=== PATIENT | female | born 1975 | race Caucasian/White ===

== ENCOUNTER → 2022-07-28 10:48 | Outpatient (BNVA) | payer BC, SELFPAY | PROVIDERS: Visit Provider Emergency Medicine | DX: S99.911A Unspecified injury of right ankle, initial encounter (principal); S89.91XA Unspecified injury of right lower leg, initial encounter; X58.XXXA Exposure to other specified factors, initial encounter | CPT/HCPCS: 73590; 73610 ==

== ENCOUNTER → 2023-03-02 14:13 | Outpatient (BNVA) | payer BC, SELFPAY | PROVIDERS: Visit Provider Nurse Practitioner Family | DX: J03.90 Acute tonsillitis, unspecified (principal); J02.9 Acute pharyngitis, unspecified | CPT/HCPCS: 87071; 87880 ==

== ENCOUNTER → 2023-06-02 09:15 | Outpatient (BNVA) | payer BC, SELFPAY | PROVIDERS: Visit Provider Family Medicine | DX: E03.9 Hypothyroidism, unspecified (principal); F33.9 Major depressive disorder, recurrent, unspecified; G47.00 Insomnia, unspecified; E28.2 Polycystic ovarian syndrome; M62.830 Muscle spasm of back; M25.50 Pain in unspecified joint; G89.29 Other chronic pain; Z13.1 Encounter for screening for diabetes mellitus; Z13.220 Encounter for screening for lipoid disorders; Z13.6 Encounter for screening for cardiovascular disorders | CPT/HCPCS: 80053; 80061; 83036; 84439; 84443; 84481; 85025; 85651; 86038; 86140 ==

== ENCOUNTER → 2023-08-04 13:32 | Outpatient (BNVA) | payer BC, SELFPAY | PROVIDERS: Visit Provider Anesthesiology Pain Medicine | DX: M54.16 Radiculopathy, lumbar region (principal); M54.50 Low back pain, unspecified; G89.29 Other chronic pain | CPT/HCPCS: 72110 ==

== ENCOUNTER 2023-08-18 12:00 | Outpatient (CLI) | payer BC, SELFPAY | END 2023-08-18 12:01 | disposition home or self-care (01) | LOC: SLEEP 08-19 12:52 | PROVIDERS: Visit Provider Psychiatry & Neurology Neurology | DX: G47.00 Insomnia, unspecified (principal); R06.83 Snoring | CPT/HCPCS: 72050; G0399 ==

== ENCOUNTER 2023-09-01 14:27 | Outpatient (CLI) | payer BC, SELFPAY ==
--- NOTE | 2023-09-01 14:30 | MR_ITS ---
WS: [email or web address] MRI LUMBAR SPINE NONCONTRAST TECHNIQUE: Sagittal T1, T2 and STIR imaging. Axial T1 and T2 imaging. CLINICAL INFORMATION: M54.16 - Radiculopathy, lumbar region COMPARISON: None. FINDINGS: Counting performed from the craniocervical junction. 11 thoracic type rib bearing vertebral bodies. 5 lumbar type vertebral bodies considered L1-L5 for the purposes of this dictation. L1-L2: Mild facet arthropathy. Spinal canal and foramen are patent. L2-L3: Mild facet arthropathy. Spinal canal and foramen are patent. L3-L4: Slight retrolisthesis. Mild annular bulging. Mild facet arthropathy. Spinal canal and foramen are patent. L4-L5: Mild annular bulging. Moderate facet arthropathy. Spinal canal and foramen are patent. Tiny fa cet effusions. L5-S1: Mild annular bulging with slight impingement on the traversing S1 nerve roots bilaterally RIGH T greater than LEFT. Moderate facet arthropathy with small LEFT greater than RIGHT facet effusions. M ild bilateral foraminal narrowing. S1 is partially lumbarized. Visualized pelvic bony structures: Normal. Paravertebral soft tissues: Normal. Retroverted and retroflexed uterus. IMPRESSION: 1. Counting performed from the craniocervical junction. 11 thoracic type rib bearing vertebral bodi es. 5 lumbar type vertebral bodies considered L1-L5 for the purposes of this dictation. 2. Mild lumbar curve. No acute compression. Incidental segmentation anomaly T11-T12. 3. Mild annular bulge L4-5 with slight narrowing of the subarticular recess bilaterally LEFT greater than RIGHT. 4. Shallow central protrusion L5-S1 with slight contact of the traversing S1 nerve roots. Mild bilat eral foraminal narrowing. 5. Moderate facet arthropathy L4-L5 and L5-S1 with small facet effusions can be seen with mild infla mmatory synovitis
== END 2023-09-01 14:28 | disposition home or self-care (01) ==
LOC: RAD 14:28
PROVIDERS: PCP Family Medicine; Visit Provider Anesthesiology Pain Medicine
DX: M54.16 Radiculopathy, lumbar region (principal); M47.817 Spondylosis without myelopathy or radiculopathy, lumbosacral region
CPT/HCPCS: 72148

== ENCOUNTER → 2023-12-22 09:23 | Outpatient (BNVA) | payer BC, SELFPAY | PROVIDERS: PCP Family Medicine; Visit Provider Family Medicine | DX: E28.2 Polycystic ovarian syndrome; E03.9 Hypothyroidism, unspecified | CPT/HCPCS: 80053; 84439; 84443; 84481 ==

== ENCOUNTER 2024-02-19 09:59 | Oncology outpatient (recurring) (ONCR) | payer BC, SELFPAY ==
[2024-02-19 11:16] LABS: Basophils % 0.8 %; Eosinophils # 0.2 10^3/uL (0.0-0.8); Eosinophils % 4.1 %; Hematocrit 42.8 % (36-47); Lymphocytes # 1.2 10^3/uL (0.8-4.8); Lymphocytes % 30.3 %; Mean Corpuscular HGB Conc 32.9 g/dL (30-55); Mean Corpuscular Volume 85.1 fl (85-98); Mean Platelet Volume 9.5 fL (7.4-10.4); Monocytes # 0.3 10^3/uL (0.2-0.9); Monocytes % 8.5 %; Neutrophils # 2.16 10^3/uL (1.8-7.7); Nucleated Red Blood Cells % 0 %; Platelet Count 470 10^3/cmm (157-399); Red Blood Count 5.03 10^6/uL (3.85-5.65); Red Cell Distribution Width 14.3 % (12.1-15.1); White Blood Count 3.86 10^3/uL (3.29-11.43)
[2024-02-19 11:28] LABS: INR 0.94 (0.8-1.2)
[2024-02-19 11:47] LABS: Alanine Aminotransferase 12 U/L (0-33); Albumin Level 3.9 g/dL (3.5-5.2); Alkaline Phosphatase 66 U/L (35-105); Anion Gap 13.1 (5-19); Aspartate Amino Transferase 15 U/L (0-32); Blood Urea Nitrogen 8 mg/dL (6-20); Calcium 8.8 mg/dL (8.5-10.5); Carbon Dioxide 24 mmol/L (22-29); Chloride 108 mmol/L (98-107); Creatinine Clr Calc Pharmacy 121.0532; Globulin 2.9 g/dL (1.3-4.6); Glomerular Filtration Rate 89.7 mL/min (90-130); Glucose 89 mg/dL (65-115); Osmolality Calculated 290 mOsm/kg (285-295); Potassium 4.1 mmol/L (3.5-5.1); Sodium 141 mmol/L (136-145); Thyroid Stimulating Hormone 0.78 uIU/mL (0.27-4.20); Total Bilirubin 0.3 mg/dL (0.15-1.2); Total Protein 6.8 g/dL (6.6-8.7)
[2024-02-22 11:40] LABS: PTT-LA-Screen 31 sec (< OR = 40)
[2024-02-24 04:24] LABS: PROTEIN C, ACTIVITY 97 % normal (70-180)
[2024-02-24 04:44] LABS: Antithrombin III Activity 123 % normal (80-135)
[2024-02-25 13:59] LABS: PROTHROMBIN (FACTOR II) 20210G POSITIVE
[2024-02-29 20:35] LABS: Factor 5 Leiden Mutation NEGATIVE
== END 2024-02-23 23:59 | disposition home or self-care (01) ==
PROVIDERS: PCP Family Medicine; Visit Provider Internal Medicine Hematology & Oncology
DX: D68.59 Other primary thrombophilia (principal); I67.5 Moyamoya disease; E03.9 Hypothyroidism, unspecified
CPT/HCPCS: 36415; 80053; 81241; 84439; 84443; 85025; 85210; 85300; 85303; 85306; 85610; 85613; 85730

== ENCOUNTER 2024-03-22 10:15 | Oncology outpatient (recurring) (ONCR) | payer BC, SELFPAY ==
[2024-03-05 04:20] LABS: CARDIOLIPIN AB (IGA) <2.0 APL-U/mL; CARDIOLIPIN AB (IGG) <2.0 GPL-U/mL; CARDIOLIPIN AB (IGM) <2.0 MPL-U/mL
[2024-03-08 02:49] LABS: Beta 2 Glycoprotein IGA <2.0 U/mL (<20.0); Beta 2 Glycoprotein IGG <2.0 U/mL (<20.0); Beta 2 Glycoprotein IGM <2.0 U/mL (<20.0)
--- NOTE | 2024-03-09 09:39 | MM_ITS ---
WS: [email or web address] BILATERAL SCREENING DIGITAL TOMOSYNTHESIS MAMMOGRAM WITH CAD HISTORY: screening breast examination COMPARISON: None available. Bilateral CC and MLO views with tomosynthesis and synthetic mammography submitted. Computer aided det ection analyzed. Breast composition: There are scattered areas of fibroglandular density. No suspicious masses, microc alcifications or architectural distortion. With the nipple in profile there are no persistent masses in the LEFT subareolar region. No calcifications. MM/[place] [id number] IMPRESSION: BI-RADS: 2-Benign FOLLOW UP: 1 Year Follow-up
--- NOTE | 2024-03-22 10:15 | CT_ITS ---
WS: [email or web address] CTA HEAD AND NECK TECHNIQUE: Contrast enhanced CTA of the head and neck with coronal and sagittal reformatted images an d maximum intensity projection (MIP) images. NASCET criteria utilized. CLINICAL INFORMATION: moyamoya COMPARISON: None. DLP: 1170.[address] scans at [facility] use at least one of these dose optimization techniques: automated e xposure control; mA and/or kV adjustment per patient size (includes targeted exams where dose is matc hed to clinical indication); or iterative reconstruction. FINDINGS: No evidence intracranial hemorrhage or mass effect. Ventricular system and basal cisterns a re patent. Paranasal sinuses and mastoid air cells are well aerated. RIGHT: RIGHT common carotid artery is paten. Hypoplastic ICA essentially terminates just distal to th e bifurcation with collateral vessels reconstituting the small petrous ICA. Collateral vessels supply the cavernous carotid ICA with a more normal-appearing carotid siphon. Hypoplastic RIGHT A1 segment. Normal vascularity to the RIGHT MCA territory. LEFT: LEFT common carotid artery is patent. ICA terminates just distal to the bifurcation and reconst itutes at the skull base via collateral vessels with a tiny petrous and cavernous segment. Supraclino id ICA supplied via a persistent carotid basilar anastomosis with relatively normal vascularity to th e FABIAN and MCA territories. Dominant ectatic RIGHT vertebral artery. Tiny LEFT vertebral artery mainly ends in PICA. Dilated tort uous persistent carotid basilar anastomosis from the LEFT distal cavernous carotid artery/supraclinoi d ICA to the basilar artery. Normal vascularity to the PRODUCT GRADER territory bilaterally. Straightening of the normal cervical doses. Prior postoperative changes ACDF C4-C6. CT/CT angio headneck* [id number] IMPRESSION: 1. Both common carotid arteries are patent. Hypoplastic internal carotid arter ies which reconstitute at the skull base via collateral vessels RIGHT greater t pradhan LEFT. Only tiny LEFT petrous and cavernous segments. 2. Relatively normal size RIGHT supraclinoid ICA. 3. LEFT supraclinoid ICA supplied via persistent anastomosis from the basilar artery with relatively normal vascularity to the FABIAN and MCA territories bilate rally. 4. Hypoplastic RIGHT A1 segment. 5. Dominant ectatic RIGHT vertebral artery is patent to the basilar. Diminutiv e LEFT vertebral artery which primarily ends in PICA. 6. Prior postoperative changes ACDF C4-C6. 7. 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
[2024-03-22] MEDS: iohexol 350 mg/mL 500 mL Btl (per mL) IV (10:41)
== END 2024-03-25 23:59 | disposition home or self-care (01) ==
LOC: ONCMED 03-23 18:46
PROVIDERS: PCP Family Medicine; Visit Provider Internal Medicine Hematology & Oncology
DX: Z53.9 Procedure and treatment not carried out, unspecified reason (principal); I67.5 Moyamoya disease; E03.9 Hypothyroidism, unspecified
CPT/HCPCS: 36415; 70496; 70498; 77063; 77067; 86146; 86147; Q9967

== ENCOUNTER 2024-03-31 12:48 | Outpatient (CLI) | payer BC, SELFPAY ==
--- NOTE | 2024-03-31 13:00 | MR_ITS ---
WS: [email or web address] MRI HEAD WITH CONTRAST TECHNIQUE: Sagittal T1, T2 axial, T2 axial FLAIR, axial susceptibility weighted imaging, axial diffus ion weighted images, and coronal T2 images were obtained. Pre and post-T1 axial and post T1 coronal i mages. ADC and FSPGR images. CLINICAL INFORMATION: I67.5 - Moyamoya disease COMPARISON: Prior CTA 03/22/2024 FINDINGS: Some images slightly degraded by motion. No evidence of restricted diffusion to suggest acute ischemia. Ventricular system and basal cisterns are patent. Minimal white matter changes. No significant parenchymal volume loss. Normal posterior fo ssa. Ectatic distal RIGHT vertebral artery and dolichoectatic basilar artery flow void. Mastoid air c ells are well aerated. Normal posterior nasopharynx. Paranasal sinuses are well aerated. No abnormal intracranial enhancement. Normal dural venous sinuses. 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 Dilated tortuous persistent carotid basilar anastomosis. Thi s originates from the LEFT distal cavernous carotid artery/supraclinoid ICA to the basilar artery as seen on the recent CTA. MR/MR head wo/w con [id number] IMPRESSION: 1. No evidence of restricted diffusion to suggest acute ischemia. 2. A few tiny foci of T2 hyperintensity in the supratentorial white matter of doubtful clinical significance. No acute or chronic infarcts. 3. No significant parenchymal volume loss. 4. No abnormal gadolinium enhancement. 5. LEFT carotid basilar anastomosis as previously described. This slightly con tacts the LEFT aspect of the optic chiasm. Recommend correlation with visual sy mptoms. 6. No other acute findings.
--- NOTE | 2024-03-31 13:45 | MR_ITS ---
WS: [email or web address] MRA CAROTID WITHOUT AND WITH GADOLINIUM ENHANCEMENT TECHNIQUE: Axial 2-D TOF and gadolinium bolus images obtained with axial images and axial, sagittal, and coronal 2-D reformatted images. CLINICAL INFORMATION: I67.5 - Moyamoya disease COMPARISON: CTA 03/22/2024 FINDINGS: RIGHT:RIGHT common carotid artery is patent. Hypoplastic ICA terminates just distal to the bifurcatio n with collateralization and reconstitution of the intracranial petrous ICA. Collateral supply to the cavernous carotid ICA. LEFT: LEFT common carotid artery is patent. ICA terminates just distal to the bifurcation and reconst itutes at the skull base via collateral vessels. Tiny intracranial petrous and cavernous segments. Ferraro praclinoid ICA supplied via a robust persistent carotid basilar anastomosis. Dominant ectatic RIGHT vertebral artery. Tiny LEFT vertebral artery ends in PICA. Proximal subclavian arteries are patent. External carotid arteries are patent. MR/MR angio neck w con* [id number] IMPRESSION: 1. Hypoplastic internal carotid arteries which terminate distal to the bifurca tions. Reconstitution at the skull base via collateral vessels more robust on t he RIGHT. This is unchanged with the recent CTA. 2. Dominant ectatic RIGHT vertebral artery. Tiny LEFT vertebral artery ends in PICA.
--- NOTE | 2024-03-31 14:30 | MR_ITS ---
WS: [email or web address] MRA HEAD TECHNIQUE: Axial 3-D TOF images obtained with axial images and axial, sagittal, and coronal 2-D refor matted images. CLINICAL INFORMATION: M54.81 - Occipital neuralgia COMPARISON: None. FINDINGS: Dominant ectatic RIGHT vertebral artery with dolichoectatic basilar artery. Tiny LEFT vertebral arter y ends in PICA. The RIGHT ICA reconstitutes at the skull base via collateral vessels. RIGHT petrous a nd cavernous segments are patent RIGHT greater than LEFT. Only a small amount of flow in the LEFT pet bear and cavernous segments similar to the recent CTA. Persistent robust carotid basilar anastomosis from the supraclinoid LEFT ICA to the basilar artery. T his supplies the LEFT MCA territory with normal vascularity. Hypoplastic RIGHT A1 segment. Normal vas cularity to the FABIAN territory with patent anterior communicating artery. Normal vascularity of the RI GHT MCA territory. Basilar artery is patent. Normal vascularity to the OUTSIDE SALES ACCOUNT REPRESENTATIVE territory bilaterally. MR/MR angio head wo con [id number] IMPRESSION: 1. Ectatic dominant RIGHT vertebral artery with dolichoectatic basilar artery. LEFT vertebral artery ends in PICA. 2. Internal carotid arteries reconstitute at the skull base via collateral alexandro w RIGHT greater than LEFT. 3. LEFT supraclinoid ICA with persistent anastomosis from the basilar artery w ith normal vascularity to the FABIAN and MCA territories bilaterally. 4. Hypoplastic RIGHT A1 segment.
== END 2024-03-31 12:49 | disposition home or self-care (01) ==
LOC: RAD 12:48
PROVIDERS: PCP Family Medicine; Visit Provider Psychiatry & Neurology Neurology
DX: I67.5 Moyamoya disease (principal); M54.81 Occipital neuralgia; G43.809 Other migraine, not intractable, without status migrainosus; M54.2 Cervicalgia; M54.9 Dorsalgia, unspecified; G89.29 Other chronic pain
CPT/HCPCS: 70544; 70548; 70553; 73030; A9577

== ENCOUNTER 2024-07-05 13:38 | Oncology outpatient (recurring) (ONCR) | payer BC, SELFPAY ==
--- NOTE | 2024-07-05 13:45 | MR_ITS ---
WS: [id number] MRI RIGHT SHOULDER HISTORY: right shoulder pain/injury COMPARISON: 03/31/2024 TECHNIQUE: Multiplanar sequences of the shoulder joint are submitted. Mild AC joint arthritis. Downsloping of the acromion with mild subacromial impingement. Small amount of fluid in the subacromial recess. No os acromion. Biceps tendon in normal position. No rotator cuff muscle atrophy or edema. No tears are identified. Mild degenerative changes and aroun d the cortex at the humeral head and glenoid. Increased fluid in the axillary pouch. Small loose bodies are present within the fluid surrounding th e humeral head. Ovoid cystic mass projects into the suprascapular notch. There is fluid extending jonathan ng the subscapularis tendon but not within the tendon. This may be a paralabral cyst. No labral tear is identified. MR/MR shoulder RT wo con* [id number] IMPRESSION: 1. Joint effusions and fluid collection surrounding the humeral head. 2. Small cyst extending into the subscapularis notch is probably a paralabral cyst. Lobulated cyst extends along the subscapularis tendon but no tear identif ied. Suspect occult paralabral cyst. 3. Downsloping of the acromion with mild subacromial impingement. 4. No rotator cuff tear. 5. Small loose bodies in the joint effusion surround the humeral head. 6. Glenohumeral joint arthritis. 7. No muscle atrophy or denervation.
== END 2024-07-25 23:59 | disposition home or self-care (01) ==
LOC: RAD 13:38 → ONCMED 07-11 06:51
PROVIDERS: PCP Family Medicine; Visit Provider Physician Assistant
DX: M19.019 Primary osteoarthritis, unspecified shoulder; M75.41 Impingement syndrome of right shoulder; M24.011 Loose body in right shoulder; S43.431A Superior glenoid labrum lesion of right shoulder, initial encounter; X58.XXXA Exposure to other specified factors, initial encounter; M25.411 Effusion, right shoulder
CPT/HCPCS: 73221

== ENCOUNTER → 2024-09-02 07:50 | Outpatient (BNVA) | payer BC, SELFPAY | PROVIDERS: PCP Family Medicine; Visit Provider Student in an Organized Health Care Education/Training Program | DX: M75.41 Impingement syndrome of right shoulder; S43.431A Superior glenoid labrum lesion of right shoulder, initial encounter; M19.011 Primary osteoarthritis, right shoulder; X58.XXXA Exposure to other specified factors, initial encounter | CPT/HCPCS: 77002 ==

== ENCOUNTER → 2024-11-03 14:39 | Outpatient (BNVA) | payer BC, SELFPAY | PROVIDERS: PCP Family Medicine; Visit Provider Family Medicine | DX: Z12.4 Encounter for screening for malignant neoplasm of cervix (principal) | CPT/HCPCS: 87624 ==

== ENCOUNTER 2024-12-10 16:28 | Emergency (ER) | payer BC, SELFPAY ==
--- NOTE | 2024-12-10 16:29 | XRR_ITS ---
PROCEDURE INFORMATION: Exam: XR Right Shoulder Exam date and time: 12/10/2024 4:46 PM Age: 49 years old Clinical indication: Pain; Shoulder; Right; Additional info: Injury TECHNIQUE: Imaging protocol: Radiologic exam of the right shoulder. Views: 2 or more views. COMPARISON: MR shoulder RT wo con* [id number] 07/05/2024 1:56 PM FINDINGS: Bones/joints: Normal. Soft tissues: Normal. XR/XR shoulder RT min 2V* [id number] IMPRESSION: No acute findings.
[2024-12-10 16:32] VITALS: BP 132/86; PULSE 91; RESP 16; TEMP 36.7; O2SAT 99; BMI 31.0
[2024-12-10] MEDS: ketorolac 60 mg/2 mL INJ IM (17:46)
--- NOTE | 2024-12-10 17:53 | W.ED.EXTPRO ---
HPI - Extremity Problem General: Chief complaint: Extremity Injury, Upper Stated complaint: right shoulder injury Time Seen by Provider: 12/10/24 17:14 History of Present Illness: Layne is a 49-year-old female that is right-hand dominant that presents to the emergency department with right shoulder pain. Patient reports she has had issues with degenerative joint disease in the right shoulder and is being evaluated currently by Dr. Loyola. Last seen by Dr. Loyola this week on Thursday. At that time she was complaining of right shoulder pain but had normal range of motion. Since that time she has had increasing pain, decreasing range of motion and is requiring hydrocodone for pain management. Patient is also been using ice. Patient has a history that includes airless Danlos syndrome, factor V Leiden, and hypothyroidism. Associated symptoms: Deny chest pain or fever(s) Related Data Home Medications ?Medication ?Instructions ?Recorded ?Confirmed melatonin PO 07/26/22 12/07/24 butalbital 50 mg-acetaminophen 325 1 cap PO Q4H PRN 06/02/23 12/07/24 mg-caffeine 40 mg-codeine 30 mg cap diazepam 5 mg tablet 5 mg PO BID PRN 06/02/23 12/07/24 multivitamin (Daily Multi-Vitamin 1 tab PO DAILY 06/02/23 12/07/24 tablet) alprazolam 0.5 mg tablet 0.5 mg PO DAILY PRN 02/19/24 12/07/24 afyrcfsihqlmu-mmmovtorhdmqn-lztkvtqqanqqe 60 cap PO BID PRN Moyamoya Disease 02/19/24 12/07/24 65 mg-100 mg-325 mg capsule Previous Rx's ?Medication ?Instructions ?Recorded triamcinolone acetonide 0.1 % 1 applic topical BID #454 grams 09/22/23 topical ointment albuterol sulfate 90 mcg/actuation 2 puff inhalation Q6H PRN 06/22/24 aerosol inhaler shortness of breath or wheezing #8.5 grams citalopram 40 mg tablet 40 mg PO DAILY 90 days #90 tabs 06/22/24 hydrocodone 5 mg-acetaminophen 325 1 tab PO BID PRN severe pain 06/22/24 mg tablet (scale score 7-10) 7 days #14 tabs levothyroxine 112 mcg tablet 112 mcg PO DAILY 90 days #90 tabs 06/22/24 metformin 500 mg tablet 500 mg PO DAILY 90 days #90 tabs 06/22/24 mupirocin 2 % topical ointment 1 applic topical BID 10 days #22 06/22/24 grams quetiapine 25 mg tablet (Seroquel) 25 mg PO .at bedtime 90 days #90 06/22/24 tabs cyclobenzaprine 10 mg tablet 10 mg PO TID PRN muscle spasm #90 08/11/24 tabs tramadol 50 mg tablet 50 mg PO BID PRN pain 7 days #14 08/11/24 tabs ketoconazole 2 % shampoo 1 applic topical Q14D #120 mL 11/03/24 ketorolac 10 mg tablet 10 mg PO Q8H 5 days #15 tabs 12/10/24 Allergies Allergy/AdvReac Type Severity Reaction Status Date / Time Latex, Natural Rubber Allergy Intermediate ALGY-Rash Verified 12/07/24 08:36 Review of Systems General: Reports: 10 or more systems reviewed and unremarkable except in HPI and below Const: Denies: fever(s), chills or body aches Card: Denies: chest pain or orthopnea Resp: Denies: dyspnea, productive cough or wheezing GI: Denies: abdominal pain, nausea or vomiting Musc: Reports: joint pain, joint swelling, joint stiffness and limited range of motion Skin/Breast: Denies: changes in skin color or dry skin Neuro: Denies: numbness in extremities or weakness in extremities Psych: Denies: anxiety Jono/Lymph: Denies: easy bruising or easy bleeding PFSH ED PFSH: Medical History Nell-Danlos syndrome Factor 5 Leiden mutation, heterozygous Surgical History Hx of fusion of cervical spine 2017 and 2018 Family History Brother Clotting disorder prothrombin Chronic kidney disease (CKD) Diabetes Thyroid disease Grandmother Stroke maternal Cancer paternal- pancreatic Father Cancer ednicarcinoma Thyroid disease Hypertension Grandfather Cancer maternal- pancreatic Thyroid disease paternal Mother CAD (coronary artery disease) Thyroid disease Clotting disorder Chronic kidney disease (CKD) Denies family history of Bleeding disorder Social History Smoking and tobacco/nicotine status: never used tobacco/nicotine Female Reproductive History: Para: 2 Spontaneous abortions: Yes (2 miscarrages and 1 still ) Physical Exam Const: COMMON NORMALS: no acute distress and alert Resp: COMMON NORMALS: normal respiratory effort and No retractions Cardio: COMMON NORMALS: Peripheral pulses 2+ throughout PERIPHERAL PULSES: Peripheral pulses 2+ throughout Extremity: NARRATIVE EXTREMITY EXAM: Right upper extremity: Skin is clean dry and intact. Tenderness to palpation over anterior shoulder. Reports pain radiates to subscapularis muscle. She has crepitus with range of motion. She is nontender to palpation over the humerus elbow forearm wrist and hand. She has full active range of motion of elbow wrist and fingers. Range of motion in the right shoulder: Forward flexion 45 degrees, 0?145, abduction 60, Food Preservation Scientist, wrist extensor, bicep, triceps, 5/5 deltoid 4/5 due to pain. Sensation intact to light touch axillary, radial, ulnar, median nerve distribution. Radial pulses palpable and cap refills less than 3 seconds Neuro: SENSORIUM/ORIENTATION: Yes alert Skin: GENERAL SKIN EXAM: dry skin Course Vital Signs: Vital signs: Vital Signs Temperature 98.1 F 12/10/24 16:32 Pulse Rate 91 12/10/24 16:32 Respiratory Rate 16 12/10/24 16:32 Blood Pressure 132/86 12/10/24 16:32 Pulse Oximetry 99 12/10/24 16:32 Oxygen Delivery Me thod Room Air 12/10/24 16:32 MDM - Extremity (Nontraumatic) Medical Decision Making Patient evaluated in the emergency department today for right shoulder pain. This is an acute on chronic issue that has been persisting for about a year. She underwent a intra-articular injection approximately 3 months ago and had good relief of her symptoms. Since that time she is followed up with Dr. Loyola's office and is slated for another shoulder injection in February. Unfortunately her symptoms are worse at this time and she is requiring narcotic pain management. I have advised the patient that she will need to follow-up with her primary care doctor for ongoing narcotic management. At this time I did offer her ketorolac injection. Going to discharge her home with 3-day supply of ketorolac. I have advised her against using any other nonsteroidal anti-inflammatory drugs while taking ketorolac. She verbalized understanding. She did undergo x-ray imaging of the right shoulder which reveals no acute findings. At this time no further diagnostics are warranted. All questions answered Lab Data Radiology Impressions Shoulder X-Ray 12/10/24 16:29 IMPRESSION: No acute findings. All radiology interpretation(s) finalized by discharge Discharge Plan Discharge Patient Disposition: Home Clinical Impression: Degenerative joint disease, Shoulder pain Condition: Stable Prescriptions: New ketorolac 10 mg tablet 10 mg PO Q8H 5 Days Qty: 15 0RF No Action melatonin PO multivitamin [Daily Multi-Vitamin] Tablet 1 tab PO DAILY zrrlihshze-lfetqwwsdv-cch-cod [id number] mg capsule 1 cap PO Q4H PRN diazepam 5 mg tablet 5 mg PO BID PRN alprazolam 0.5 mg tablet 0.5 mg PO DAILY PRN triamcinolone acetonide 0.1 % ointment 1 applic topical BID Qty: 454 1RF oketpmt-auroldahc-evwzplmegxac 65-100-325 mg capsule 60 cap PO BID PRN (Reason: Moyamoya Disease) citalopram 40 mg tablet 40 mg PO DAILY 90 Days Qty: 90 2RF levothyroxine 112 mcg tablet 112 mcg PO DAILY 90 Days Qty: 90 2RF albuterol sulfate 90 mcg/actuation HFA aerosol inhaler 2 puff inhalation Q6H PRN (Reason: shortness of breath or wheezing) Qty: 8.5 0RF metformin 500 mg tablet 500 mg PO DAILY 90 Days Qty: 90 2RF quetiapine [Seroquel] 25 mg tablet 25 mg PO .at bedtime 90 Days Qty: 90 2RF hydrocodone-acetaminophen 5-325 mg tablet 1 tab PO BID PRN (Reason: severe pain (scale score 7-10)) 7 Days Qty: 14 0RF mupirocin 2 % ointment 1 applic topical BID 10 Days Qty: 22 2RF Rx Instructions: apply to nose ketoconazole 2 % shampoo 1 applic topical Q14D Qty: 120 1RF tramadol 50 mg tablet 50 mg PO BID PRN (Reason: pain) 7 Days Qty: 14 0RF Rx Instructions: Not to be taken with benzodiazepines or other pain medications. cyclobenzaprine 10 mg tablet 10 mg PO TID PRN (Reason: muscle spasm) Qty: 90 2RF Discharge Orders: Discharge ED (Routine); Ordered 12/10/24 Ordered By: Alayna Acosta Referrals: Tracy Pack MD [Primary Care Provider] - Discharge Diet: Advance as tolerated Discharge Activity: Resume usual activity Patient Instructions: Shoulder Pain (ED), Pain Management Activity Restrictions/Additional Instructions: Degenerative joint disease has inflammatory properties that worsen at times. Nonsteroidal anti-inflammatory drugs like ketorolac, ibuprofen, Aleve can help with some of your symptoms. Please follow-up with the orthopedic surgeon and return to the emergency department as needed for new, concerning, worsening symptoms Print Language: Amharic Coding Level of Care Code ED Chief Specialist Leed for Queta Langford
[2024-12-10 18:10] VITALS: BP 131/71; PULSE 88; O2SAT 99
== END 2024-12-10 18:11 | disposition home or self-care (01) ==
PROVIDERS: Emergency Provider Nurse Practitioner; PCP Family Medicine
DX: M19.011 Primary osteoarthritis, right shoulder (principal)
CPT/HCPCS: 73030; 96372; 99284; J1885

== ENCOUNTER → 2025-01-16 16:03 | Outpatient (BNVA) | payer BC, SELFPAY | PROVIDERS: PCP Family Medicine; Visit Provider Obstetrics & Gynecology | DX: R87.612 Low grade squamous intraepithelial lesion on cytologic smear of cervix (LGSIL) (principal) | CPT/HCPCS: 81025 ==

== ENCOUNTER 2025-02-16 08:22 | Day surgery (SDC) | payer BC, SELFPAY ==
[2025-02-16] VITALS (11 sets, daily range): BP systolic 115–132; BP diastolic 77–92; PULSE 74–93; RESP 15–17; TEMP 36.3–36.6; O2SAT 92–99; BMI 29.7
[2025-02-16] MEDS: ketorolac 30 mg/mL INJ IVP (09:11)
[2025-02-16] MEDS: sodium chloride 0.9% 1,000 ML 30 ML IV (09:12)
[2025-02-16] MEDS: acetaminophen 1,000 MG/100 ML PIGGYBACK 400 MG IV (09:12)
[2025-02-16] MEDS: scopolamine 1 mg PATCH 1 PATCH TRANSDERMA (09:12)
--- NOTE | 2025-02-16 10:13 | W.PM.OPSFHP ---
Same Day Surgery H&P Indication for Procedure/HPI DATE OF PROCEDURE: February 16, 2025 CHIEF COMPLAINT/INDICATIONFOR SURGICAL PROCEDURE: Right shoulder AC joint arthritis, rotator cuff impingement, loose bodies, paralabral cyst and tear PREOP DIAGNOSIS: Right shoulder AC joint arthritis, cuff impingement, loose bodies, paralabr PLANNED PROCEDURE: Operation Date: 02/16/25 12:05 Proposed Procedures p Shoulder Arthroscopy(Right) - Raghav Tompkins, DO s AC Joint Resection Acromioclavicular Joint Resection(Right) - Raghav Tompkins, DO s Subacromial Decompression(Right) - Raghav Milla, DO s POSSIBLE Labral Repair(Right) - Raghav Tompkins, DO s POSSIBLE Cyst Decompression(Right) - Raghav Tompkins, DO s POSIIBLE Bicep Tenodesis(Right) - Raghav Tompkins, DO Medications/Allergies* Home Medications ?Medication ?Instructions ?Recorded ?Confirmed ?Type melatonin 10 mg PO BEDTIME 07/26/22 02/15/25 History butalbital 50 mg-acetaminophen 325 1 cap PO Q4H PRN Headache 06/02/23 02/15/25 History mg-caffeine 40 mg-codeine 30 mg cap multivitamin (Daily Multi-Vitamin 1 tab PO DAILY 06/02/23 02/15/25 History tablet) alprazolam 0.5 mg tablet 0.5 mg PO DAILY PRN Anxiety 02/19/24 02/15/25 History vpouhzoaqskez-suilubzlabilg-vvojhclfxgkab 60 cap PO BID PRN Moyamoya Disease 02/19/24 02/15/25 History 65 mg-100 mg-325 mg capsule Allergies/Adverse Reactions Allergy/AdvReac Type Severity Reaction Status Date / Time Latex, Natural Rubber Allergy Intermediate ALGY-Rash Verified 02/16/25 08:49 Current Medications: Generic Name Dose Route Start Last Admin Trade Name Freq PRN Reason Stop Dose Admin Sodium Chloride 1,000 mls @ 30 mls/hr 02/16/25 08:30 02/16/25 09:12 Sodium Chloride 0.9% IV 02/17/25 08:29 30 mls/hr .Q24H PASCALE Administration Pertinent History/Comorbid Conditions* Medical History (Updated 01/10/25 @ 13:32 by Madonna Coleman NP) Nell-Danlos syndrome Factor 5 Leiden mutation, heterozygous Surgical History (Updated 06/14/23 @ 21:57 by Tracy Pack MD) Hx of fusion of cervical spine 2017 and 2018 Family History (Updated 01/02/25 @ 11:22 by Alecia Abraham CMA) Diabetes Brother Grandfather CAD (coronary artery disease) Mother Clotting disorder Brother prothrombin Mother Hyperlipidemia Father Chronic kidney disease (CKD) Brother Mother Cancer Grandmother paternal- pancreatic Father ednicarcinoma Grandfather maternal- pancreatic Hypertension Father Mother Thyroid disease Brother Father Grandfather paternal Mother Stroke Grandmother maternal Denies family history of Colon cancer Ovarian cancer Breast cancer Bleeding disorder Uterine cancer Social History Smoking and tobacco/nicotine status: never used tobacco/nicotine Pertinent Exam Findings alert, oriented x 3, operative site marked and procedure specific exam findings Please refer to detailed orthopedic examination on 12/21/2024 listed below: Right Shoulder -Tender to palpation-biceps tendon, AC joint -Rotator cuff strength intact 5 out of 5 strength for internal and external -Jobes test-positive with pain -Speed's Test-positive with pain -O'Briens test-positive with pain -Gregory impingement-positive -Empty can test-positive with pain -Radial pulse 2+, normal cap refill under 2 seconds and patient can wiggle fingers. -Sensation to hand intact -Fill active and passive ROM, Pain on end ranges -Click/Crepitus with ROM Recommendations Risks and benefits of procedure reviewed and Patient/family agree to proceed Surgery/Procedure today Other Plans: Plan to proceed to the OR today for right shoulder diagnostic and surgical arthroscopy with acromioclavicular joint resection, subacromial decompression, possible labral repair, possible cyst decompression, possible bicep tenodesis. Patient understands the exam procedure risk benefits complication alternatives surgery and through shared decision-making. Patient elects proceed with surgical invention. All questions answered this time Coding Level of Care Code Acute Code for Queta Fwd
--- NOTE | 2025-02-16 10:44 | ANES.PREANE2 ---
Pre-Anesthetic Assessment Height/Weight: Height 5 ft 7 in Weight 190 lb Temp Pulse Resp BP Pulse Ox O2 Del Method 97.3 F L 85 17 119/89 99 Room Air 02/16/25 08:54 02/16/25 08:54 02/16/25 08:54 02/16/25 08:54 02/16/25 08:54 02/16/25 09:27 Preop Diagnosis: Right shoulder AC joint arthritis, cuff impingement, loose bodies, paralabr Operation Date: 02/16/25 12:05 Proposed Procedures p Shoulder Arthroscopy(Right) - Raghav Nolan, DO s AC Joint Resection Acromioclavicular Joint Resection(Right) - Raghav Nolan, DO s Subacromial Decompression(Right) - Raghav Milla, DO s POSSIBLE Labral Repair(Right) - Raghav Milla, DO s POSSIBLE Cyst Decompression(Right) - Raghav Nolan, DO s POSIIBLE Bicep Tenodesis(Right) - Raghav Milla, DO Was Beta Mary taken within 24 hours: N/A Was Clonidine taken within 24 hours: N/A Last intake: Intake Last Liquid Date 02/15/25 Last Liquid Time 23:45 Last Solid Date 02/15/25 Last Solid Time 21:30 Social No alcohol and No tobacco Exam alert, oriented x 3, clear to auscultation bilaterally and regular rate & rhythm Airway Submandibular: within normal limits Cervical ROM: Other (S/p cervical fusion) Mallampati: Class II Dentition: full Anesthetic Plan ASA status: 3 Anesthesia: General and Regional (specify below) Other: No prior issues with anesthesia NPO since yesterday evening History of cervical fusion Hypothyroidism on Synthroid Type 2 diabetes on metformin Patient has a history of factor V Leiden, no prior DVT or PEs Patient also has Moyamoya disease. On 81 mg aspirin daily Denies any prior histories of strokes or blurry vision but does note chronic cervical/occipital migraines hCG negative Plan for general anesthesia with preop nerve block Medications/Allergies Home Medications ?Medication ?Instructions ?Recorded ?Confirmed ?Last Taken ?Type melatonin 10 mg PO BEDTIME 07/26/22 02/15/25 02/15/25 History butalbital 50 mg-acetaminophen 325 1 cap PO Q4H PRN Headache 06/02/23 02/15/25 Unknown History mg-caffeine 40 mg-codeine 30 mg cap multivitamin (Daily Multi-Vitamin 1 tab PO DAILY 06/02/23 02/15/25 02/15/25 History tablet) triamcinolone acetonide 0.1 % 1 applic topical BID #454 grams 09/22/23 02/08/25 Unknown Rx topical ointment alprazolam 0.5 mg tablet 0.5 mg PO DAILY PRN Anxiety 02/19/24 02/15/25 01/26/25 History lujzqlplskqdm-ftobgsbkhfspf-mvtjbdhsenvmt 60 cap PO BID PRN Moyamoya Disease 02/19/24 02/15/25 Unknown History 65 mg-100 mg-325 mg capsule albuterol sulfate 90 mcg/actuation 2 puff inhalation Q6H PRN 06/22/24 02/15/25 Unknown Rx aerosol inhaler shortness of breath or wheezing #8.5 grams citalopram 40 mg tablet 40 mg PO DAILY 90 days #90 tabs 06/22/24 02/15/25 02/15/25 Rx levothyroxine 112 mcg tablet 112 mcg PO DAILY 90 days #90 tabs 06/22/24 02/15/25 02/15/25 Rx metformin 500 mg tablet 500 mg PO DAILY 90 days #90 tabs 06/22/24 02/15/25 02/15/25 Rx mupirocin 2 % topical ointment 1 applic topical BID 10 days #22 06/22/24 02/15/25 Unknown Rx grams quetiapine 25 mg tablet (Seroquel) 25 mg PO .at bedtime 90 days #90 06/22/24 02/15/25 02/15/25 Rx tabs cyclobenzaprine 10 mg tablet 10 mg PO TID PRN muscle spasm #90 08/11/24 02/15/25 Unknown Rx tabs ketoconazole 2 % shampoo 1 applic topical Q14D #120 mL 11/03/24 02/15/25 Unknown Rx hydrocodone 5 mg-acetaminophen 325 1 tab PO BID PRN severe pain 12/13/24 02/15/25 02/01/25 Rx mg tablet (scale score 7-10) 7 days #14 tabs tramadol 50 mg tablet 50 mg PO BID PRN pain 7 days #14 01/09/25 02/15/25 Unknown Rx tabs diazepam 5 mg tablet 5 mg PO BID PRN muscle spasm #20 03/26/25 04/23/25 Unknown Rx tabs methocarbamol 750 mg tablet 750 mg PO Q8H PRN neck pain #10 01/18/25 02/15/25 Unknown Rx tabs Allergies Allergy/AdvReac Type Severity Reaction Status Date / Time Latex, Natural Rubber Allergy Intermediate ALGY-Rash Verified 02/16/25 08:49 Current Medications Generic Name Dose Route Start Last Admin Trade Name Freq PRN Reason Stop Dose Admin Sodium Chloride 1,000 mls @ 30 mls/hr 02/16/25 08:30 02/16/25 09:12 Sodium Chloride 0.9% IV 02/17/25 08:29 30 mls/hr .Q24H PASCALE Administration PFSH Anesthesia Medical History Nell-Danlos syndrome Factor 5 Leiden mutation, heterozygous Surgical History Hx of fusion of cervical spine 2016 and 2017 Family History Brother Clotting disorder prothrombin Chronic kidney disease (CKD) Diabetes Thyroid disease Grandmother Stroke maternal Cancer paternal- pancreatic Father Cancer ednicarcinoma Thyroid disease Hypertension Hyperlipidemia Grandfather Cancer maternal- pancreatic Thyroid disease paternal Diabetes Mother CAD (coronary artery disease) Thyroid disease Clotting disorder Chronic kidney disease (CKD) Hypertension Denies family history of Colon cancer Ovarian cancer Breast cancer Bleeding disorder Uterine cancer Social History Smoking and tobacco/nicotine status: never used tobacco/nicotine Female Reproductive History Para: 2 Spontaneous abortions: Yes (2 miscarrages and 1 still ) Data Anesthesia Cardiac Studies: No Data to Display
[2025-02-16 11:15] LABS: OR HCG Qualitative Urine Negative (Negative)
[2025-02-16] MEDS: ceFAZolin 2,000 MG in sodium chloride 0.9% (plus) 50 ML 100 MG IV (11:35)
[2025-02-16] MEDS: EPINEPHrine 1 mg/mL INJ 2 MG XX (12:30)
--- NOTE | 2025-02-16 13:30 | PM.OP ---
Operative Report Date of procedure: February 16, 2025 Surgeon: Raghav Loyola DO Bowling Ball Grader And Marker: Patrice Loyola PA-C: PA was necessary for assistance in this case with shoulder positioning to execute the procedure, assistance with instrumentation, as well as implant fixation when necessary, assist with wound closure and dressing application. Procedure: Preoperative diagnosis: Right shoulder AC joint arthritis, rotator cuff impingement, loose bodies, paralabral cyst and tear Post-op diagnosis: Right shoulder AC joint arthritis, subacromial bursitis, paralabral cyst , partial tearing of biceps tendon and partial labral tear and glenohumeral joint arthritis grade III. Procedure done: Right?shoulder?diagnostic and surgical arthroscopy with biceps tenodesis Right?shoulder?diagnostic and surgical arthroscopy cyst decompression Right?shoulder?diagnostic and surgical arthroscopy labral debridement Right?shoulder?diagnostic and surgical arthroscopy acromioclavicular joint resection Right?shoulder?diagnostic and surgical arthroscopy subacromial decompression (acromioplasty and bursectomy) Surgeon: Raghav Loyola DO Estimated blood loss: 5mL IV fluids: 1000 cc Implants: Arthrex loop and tack biceps tenodesis kit 4.75 Complications: None Condition: stable Disposition: same day Brief History: Patient been seen and worked up in the outpatient setting for right?shoulder?pain.? Pt had an MRI which showed findings below.? Patient's failed conservative treatment and has weakness.? We talked about treatment options far as nonoperative and operative intervention.? We talked about risk benefits complication alternatives surgical nonsurgical treatment options.? Understanding risk of surgery patient agrees to proceed with surgical intervention.? All questions have been answered at this time.? Patient elects proceed with surgery and consent obtained in preoperative holding area for right shoulder diagnostic and surgical arthroscopy with acromioclavicular joint resection, subacromial decompression, possible labral repair, possible cyst decompression, possible bicep tenodesis. MR/MR shoulder RT wo con* [id number] IMPRESSION: 1. Joint effusions and fluid collection surrounding the humeral head. 2. Small cyst extending into the subscapularis notch is probably a paralabral cyst. Lobulated cyst extends along the subscapularis tendon but no tear identified. Suspect occult paralabral cyst. 3. Downsloping of the acromion with mild subacromial impingement. 4. No rotator cuff tear. 5. Small loose bodies in the joint effusion surround the humeral head. 6. Glenohumeral joint arthritis. 7. No muscle atrophy or denervation Procedure: Patient seen evaluated in the preoperative holding area.? Consent reviewed and signed with patient.? Once again reviewed patient's MRI results as well as? planned surgical intervention.? Correct extremity marked.? Patient seen evaluated by anesthesia department received regional anesthesia.? Once ready for surgery was taken back to the operative suite.? Patient then subsequently underwent anesthesia per the anesthesia department was transported onto the OR table.? Patient was then placed into a lateral decubitus position with a beanbag and was appropriately secured to the bed.? All bony prominences well-padded.? Patient then had the right upper extremity was then prepped and draped in standard orthopedic fashion.? Patient received appropriate preoperative antibiotics.? Final timeout performed. The right upper extremity was then held in hanging from traction utilizing sterile technique.? Next started with standard diagnostic and surgical arthroscopy with posterior portal position introduced arthroscope into the glenohumeral joint.? Visualized the glenohumeral joint I then introduced a spinal needle within the?rotator?cuff interval to confirm appropriate anterior portal placement.? Once this was confirmed I then made my small incision and then introduced my arthroscopic shaver into the glenohumeral joint.? After flushing the joint fluid, was clearly evident patient had biceps tendon tearing as well as Superior labral tear. Patient also had significant glenohumeral joint chondromalacia and already degenerative tearing of the labrum as a result decision was made not for a labral repair but for a tenodesis. Patient had appreciable unstable biceps anchor most pronounced in the superior labrum. Given there appears to be healthy intra-articular tendon plan was for an intra-articular biceps tenodesis at the superior portion as it enters the intertubercular groove. Thermal wand introduced into the rotator interval. I then release of the rotator interval to have appropriate visualization and the ability to perform biceps tenodesis. At this point I established a purple passport cannula which was introduced. Next I performed an Arthrex loop and tap biceps tenodesis. Passer was then made around the tendon luggage tag stitch around and then thru the tendon and around twice I then utilized a thermal wand to release the biceps tendon at the anchor to perform with tenotomy. I then loaded with suture onto an Arthrex 4.75 swivel lock suture anchor. A punch was then placed in appropriate position at the entry point into the intertubercular groove just superior to the subscapularis tendon. Punch was then introduced to the appropriate depth. The suture loaded on the swivel lock was then advanced held under appropriate tension and shoulder lock anchor was then advanced and had excellent fixation. Excess suture was then cut biceps tenodesis was complete. I then utilized a thermal wand to seal the edges of the superior labrum. Next I evaluated the subscapularis tendon which was intact and no evidence of tear. I did inspect the subscapularis thoroughly there was no appreciable cyst along the tendon. ?Next there was significant labral tearing at biceps anchor and circumferential.? ? I then subsequently utilized a a arthroscopic shaver and thermal wand to perform a labral debridement.? This point time I then visualized the glenohumeral joint.? The glenohumeral joint was found to have grade 3? chondromalacia throughout with small areas of early grade 4..? Axillary pouch was free of loose bodies from viewing the posterior portal.? I did not appreciate any loose bodies however patient did have significant degenerative changes in thorough irrigation as well as debridement with arthroscopic shaver was performed of the glenohumeral joint. At this point in time I utilized a arthroscopic elevator to elevate the labrum indirectly to decompressed patient's cyst at least allow for endhole for decompression of the paralabral cyst although it was not identified. Next a visualized the?rotator?cuff superiorly and this was found to be intact with a negative escape bubble sign. ?? This completed my work within the glenohumeral joint all fluid was suctioned free of the joint.? ?Next I reintroduced the arthroscope posteriorly.? And went to the subacromial space.? I established my lateral working portal at the site of which my spinal needle was marking of the?rotator?cuff tear.? Thermal wand was then introduced laterally and then I subsequently performed extensive bursectomy of the subacromial space.? Patient had a large anterior bone spur.? At this point time I proceeded with my AC joint resection thermal wand was used and track to the anterior edge of the acromion and then tracked all the way to the AC joint.? Once identified the AC joint this was very arthritic in nature.? Thermal wand was placed anteriorly to establish appropriate plane for AC joint resection.? Once appropriate margins and anterior inferior and anterior capsule was released I then introduced arthroscopic shaver and a bur and performed AC joint resection of both the acromion to cope plane at the AC joint and a distal clavicle resection was then performed totaling 1 cm in size and was confirmed.? This completed my AC joint resection and I then introduced the arthroscopic shaver laterally while continuing to view posteriorly.? I then performed an acromioplasty to complete my subacromial decompression prior to further evaluating rotator cuff. At this point time after performing AC resection and subacromial decompression I thoroughly evaluated the rotator cuff utilize arthroscopic shaver and thermal wand to perform extensive bursectomy of the area and came directly down over the rotator cuff this was completely intact there is no evidence of tear. ?Next I then introduced the arthroscopic shaver posteriorly to complete my subacromial decompression appropriate complaining all the way up to the lateral edge of the acromion.? This completed the surgery.? All fluid was suctioned from the?shoulder.? All instruments were removed.? The lateral incision was then closed with nylon stitches.? As well as the portal sites closed with portal nylon stitches.? Xeroform 4 x 4's ABD and tape was then applied to the right?shoulder?and was placed into a?shoulder?abduction pillow sling for?bicep tenodesis.? Patient was then awakened from anesthesia and then taken back to PACU in stable condition.? Patient tolerated procedure without any issues. Disposition: Patient taken back in stable condition recovering well.? Dressings on in place clean dry and intact.? Will be nonweightbearing to the right upper extremity.? Follow?bicep tenodesis protocol.? Patient to follow-up with me in the office in 2 weeks.? Patient will receive appropriate discharge instruction as well as pain medication postoperatively.? All questions answered.? We will contact the office for any questions or concerns.
--- NOTE | 2025-02-16 13:34 | P.BOP_ITS ---
Date of Procedure: [February 16, 2025] Surgeon: [Dr. Loyola DO] Electric Organ Inspector And Repairer(s): [Patrice Loyola PA-C] Procedure(s) performed: [Right shoulder diagnostic and surgical arthroscopy AC joint resection Subacromial decompression Biceps tenodesis Cyst decompression Labral debridement] Findings of the procedure(s): [Right shoulder AC joint arthritis, subacromial bursitis, cyst, partial tearing of biceps tendon and partial labral tear and glenohumeral joint arthritis grade III. Procedure went well and as planned.] Estimated blood loss: [5 mL] Specimen(s) removed: [N/A] Post-operative diagnosis: [Right shoulder AC joint arthritis, subacromial bursitis, cyst, partial tearing of biceps tendon and partial labral tear and glenohumeral joint arthritis grade III.]
--- NOTE | 2025-02-16 13:38 | ANES.PROC ---
Anesthesia Procedures Procedure/Date: 02/16/25 Nerve Block ^: Nerve Block 1: Main Anesthesia: other (100 mcg fentanyl and 2 mg Versed) Time Out Performed: Yes Consent: requested by attending/covering physician and from patient Nerve block location: interscalene Anesthesia monitors applied: pulse oximetry, EKG, BP cuff and oxygen Nerve block position: supine Anesthetic Used: ropivicaine 0.5% Amount of anesthesia used (mL): 30 Ultrasound used to: recognize landmarks Nerve Stimulator Used?: Yes Interscalene/Femoral BLK: other needle (pjunk 4inch) Injection: neg aspiration of heme Patient Tolerated Procedure: well Complications: none Additional Comments: Decadron 4 mg at the block
--- NOTE | 2025-02-16 13:40 | PM.PACU ---
PACU note Narrative: Patient is a 50-year-old female that just underwent a right shoulder diagnostic and surgical arthroscopy. Patient transferred to PACU in stable condition. Pain is well controlled. shoulder Dressing on , dry and in place. Patient's operative arm is in a shoulder immobilizer. Patient is awake and alert and able to respond to my questions accordingly. Patient's fingers are warm with good perfusion. Normal cap refill under 2 seconds. Unable to assess further range of motion in arm due to sling. Unable to assess sensation due to residual block. Exam: awake Disposition: discharged
--- NOTE | 2025-02-16 14:25 | ANE.PACU2 ---
Inpatient post-anesthesia follow up: Airway intact: Yes Vital signs: Temperature 97.7 F Pulse Rate 93 Respiratory Rate 17 Blood Pressure 130/85 Pulse Oximetry 96 Oxygen Delivery Me thod Room Air Oxygen Flow Rate Fraction of Inspir ed Oxygen Hydration adequate: Yes Nausea and vomiting: No Pain level: 1 Mental status: Baseline
== END 2025-02-16 15:25 | disposition home or self-care (01) ==
PROVIDERS: Student in an Organized Health Care Education/Training Program; PCP Family Medicine; Visit Provider Student in an Organized Health Care Education/Training Program
PROC: (CPT 29805; principal; 2025-02-16 11:45)
PROC: 0RSG0ZZ Reposition Right Acromioclavicular Joint, Open Approach (ICD-10-PCS; CPT 29828; 2025-02-16 11:45)
PROC: (CPT 29826; 2025-02-16 11:45)
PROC: (CPT 29807; 2025-02-16 11:45)
PROC: (CPT 29999; 2025-02-16 11:45)
PROC: (CPT 23430; 2025-02-16 11:45)
DX: M19.011 Primary osteoarthritis, right shoulder (principal); M75.41 Impingement syndrome of right shoulder; S46.211A Strain of muscle, fascia and tendon of other parts of biceps, right arm, initial encounter; M75.51 Bursitis of right shoulder; S43.431A Superior glenoid labrum lesion of right shoulder, initial encounter; Q79.60 Ehlers-Danlos syndrome, unspecified; D68.51 Activated protein C resistance; E03.9 Hypothyroidism, unspecified; Z79.890 Hormone replacement therapy; E11.9 Type 2 diabetes mellitus without complications; Z79.899 Other long term (current) drug therapy; Z91.040 Latex allergy status; Z79.84 Long term (current) use of oral hypoglycemic drugs; Z79.82 Long term (current) use of aspirin; Z98.1 Arthrodesis status; X58.XXXA Exposure to other specified factors, initial encounter
CPT/HCPCS: 29828; 29826; 29824; 81025; C1713; J0131; J0171; J0690; J1100; J1885; J2405; J2704; J3010; J3490; J7030; J9999

== ENCOUNTER 2025-02-23 05:00 | Outpatient (RCR) | payer BC, SELFPAY | END 2025-03-25 23:59 | disposition home or self-care (01) | LOC: MPT 05:00 | PROVIDERS: Visit Provider Physician Assistant | DX: Z98.890 Other specified postprocedural states (principal) | CPT/HCPCS: 97110; 97140; 97162 ==

== ENCOUNTER 2025-03-26 05:00 | Outpatient (RCR) | payer BC, SELFPAY | END 2025-04-24 23:59 | disposition home or self-care (01) | LOC: MPT 05:00 | PROVIDERS: PCP Family Medicine; Visit Provider Physician Assistant | DX: Z98.890 Other specified postprocedural states (principal) | CPT/HCPCS: 97110; 97140 ==

== ENCOUNTER 2025-04-25 05:00 | Outpatient (RCR) | payer BC, SELFPAY | END 2025-05-25 23:59 | disposition home or self-care (01) | LOC: MPT 05:00 | PROVIDERS: PCP Family Medicine; Visit Provider Physician Assistant | DX: Z98.890 Other specified postprocedural states (principal) | CPT/HCPCS: 97110; 97140 ==

== ENCOUNTER 2025-05-26 05:00 | Outpatient (RCR) | payer BC, SELFPAY | END 2025-06-25 23:59 | disposition home or self-care (01) | LOC: MPT 05:00 | PROVIDERS: PCP Family Medicine; Visit Provider Physician Assistant | DX: Z98.890 Other specified postprocedural states (principal) | CPT/HCPCS: 97110; 97140 ==

== ENCOUNTER 2025-06-26 05:00 | Outpatient (RCR) | payer BC, SELFPAY | END 2025-07-25 23:59 | disposition home or self-care (01) | LOC: MPT 05:00 | PROVIDERS: PCP Family Medicine; Visit Provider Physician Assistant | DX: Z47.89 Encounter for other orthopedic aftercare (principal) | CPT/HCPCS: 97110; G0283 ==

== ENCOUNTER → 2025-06-29 08:58 | Outpatient (BNVA) | payer BC, SELFPAY | PROVIDERS: PCP Family Medicine; Visit Provider Family Medicine | DX: E03.9 Hypothyroidism, unspecified (principal); E28.2 Polycystic ovarian syndrome; Q79.60 Ehlers-Danlos syndrome, unspecified | CPT/HCPCS: 80053; 80061; 84443; 85025; 85651; 86140 ==

== ENCOUNTER 2025-08-07 10:58 | Outpatient (RCR) | payer BC, SELFPAY | END 2025-08-25 23:59 | disposition home or self-care (01) | LOC: MPT 10:58 | PROVIDERS: PCP Family Medicine; Visit Provider Physician Assistant | DX: Z98.890 Other specified postprocedural states (principal) | CPT/HCPCS: 97110 ==

== ENCOUNTER → 2025-08-08 13:08 | Outpatient (BNVA) | payer BC, SELFPAY | PROVIDERS: PCP Family Medicine; Visit Provider Orthopaedic Surgery | DX: M50.323 Other cervical disc degeneration at C6-C7 level (principal); Z76.89 Persons encountering health services in other specified circumstances | CPT/HCPCS: 72050 ==

== ENCOUNTER 2025-08-22 13:46 | Outpatient (CLI) | payer BC, SELFPAY ==
--- NOTE | 2025-08-22 13:45 | MR_ITS ---
WS: [id number] MRI CERVICAL SPINE NONCONTRAST TECHNIQUE: Sagittal T1, T2 and STIR imaging. Axial T2, gradient, and fiesta imaging. CLINICAL INFORMATION: chronic neck pain COMPARISON: None. FINDINGS: Straightening of the normal cervical lordosis. Postoperative changes ACDF C4-C6. Disc space narrowing worse at C6-7. Slight anterolisthesis C7 on T1. Mild disc bulge in the upper thoracic spine T2-3 and T3-4. Tiny syrinx in the cervical cord extending from C5-T1. This measures approximately 1.5 mm in maximum transverse dimension at C7. C2-C3: Ectatic RIGHT vertebral artery in the transverse foramen at the C2 level. Mild facet arthropathy. Spinal canal and foramen are patent. C3-C4: Mild facet arthropathy. Spinal canal and foramen are patent. C4-C5: Mild LEFT and no significant RIGHT foraminal narrowing. Mild facet arthropathy. C5-C6: Postoperative changes. Mild LEFT and no significant RIGHT foraminal narrowing. Uncovertebral joint hypertrophy. Mild facet arthropathy. C6-C7: Mild to moderate LEFT and no significant RIGHT foraminal narrowing. Mild facet arthropathy. Uncovertebral joint hypertrophy. C7-T1: Grade 1 anterolisthesis. Mild LEFT and no significant RIGHT foraminal narrowing. Spinal canal is patent. Visualized brain stem structures: Normal. Prevertebral soft tissues: Normal. MR/MR cervical spin wo con* [id number] IMPRESSION: 1. Prior ACDF C4-C6. 2. No significant central canal stenosis. 3. Tiny syrinx in the cervical cord at C5-T1. 4. Mild to moderate bony foraminal narrowing LEFT C5-C6, LEFT C6-C7 and LEFT C 7-T1.
== END 2025-08-22 13:47 | disposition home or self-care (01) ==
LOC: RAD 13:47
PROVIDERS: PCP Family Medicine; Visit Provider Orthopaedic Surgery
DX: M99.61 Osseous and subluxation stenosis of intervertebral foramina of cervical region (principal); M43.22 Fusion of spine, cervical region; Z09 Encounter for follow-up examination after completed treatment for conditions other than malignant neoplasm
CPT/HCPCS: 72141

== ENCOUNTER → 2025-09-18 10:29 | Outpatient (BNVA) | payer BC, SELFPAY | PROVIDERS: PCP Family Medicine; Visit Provider Family Medicine | DX: E03.9 Hypothyroidism, unspecified (principal) | CPT/HCPCS: 84439; 84443; 84481 ==

== ENCOUNTER → 2025-10-23 11:05 | Outpatient (BNVA) | payer BC, SELFPAY | PROVIDERS: PCP Family Medicine; Visit Provider Family Medicine | DX: E03.9 Hypothyroidism, unspecified (principal) | CPT/HCPCS: 84439; 84443; 84481 ==